=== PATIENT | female | born 1990 ===

== ENCOUNTER → 2019-03-23 | Outpatient (CLI) | payer OTHER ==
[2019-03-25 00:06] LABS: HBSAG SCREEN Negative (Negative)
== END ==
LOC: LAB 17:42 → LAB SHORT 17:42
PROVIDERS: Physician Assistant
DX: Z77.21 Contact with and (suspected) exposure to potentially hazardous body fluids (principal)
CPT/HCPCS: 84460; 86317; 86703; 86803; 87340